=== PATIENT | male | born 1980 | race Caucasian/White ===

== ENCOUNTER 2016-10-27 16:03 | Inpatient (IN) | payer MEDICARE, MEDICAID ==
[~2016-10-27] VITALS: Ht 177.8 cm; Wt 64.5 kg
[2016-10-28 14:44] VITALS: BP 108/67
[2016-10-28] MEDS ORDERED: LORazepam 2 MG/ML VIAL IM ONE (15:15)
[2016-10-28] MEDS ORDERED: DiphenhydrAMINE HCL 50 MG/ML VIAL IM ONE (15:15)
[2016-10-28] MEDS ORDERED: HALOPERIDOL LACTATE 5 MG/ML VIAL IM ONE (15:15)
[2016-10-28] MEDS ORDERED: TUBERCULIN, PURIFIED PROTEIN DERIVATIVE 5 TU/0.1 ML SYG ID ONE (15:45)
[2016-10-28] MEDS ORDERED: PROMETHAZINE HCL 25 MG TABLET PO PRN (15:45)
[2016-10-28] MEDS ORDERED: MAG HYDROX/AL HYDROX/SIMETH ES 30 ML SUSPENSION UDCUP PO PRN (15:45)
[2016-10-28] MEDS ORDERED: ACETAMINOPHEN 325 MG TABLET PO PRN (15:45)
[2016-10-28] MEDS ORDERED: MAGNESIUM HYDROXIDE SUSPENSION 30 ML UDCUP PO PRN (15:45)
[2016-10-28] MEDS ORDERED: ZOLPIDEM TARTRATE 10 MG TABLET PO PRN (15:45)
[2016-10-28] MEDS ORDERED: GuaiFENesin/D-METHORPHAN [SUGAR-FREE] 200-20MG/10 ML SYRUP UDCUP PO PRN (15:45)
[2016-10-28] MEDS ORDERED: HydrOXYzine PAMOATE 50 MG CAPSULE PO PRN (15:45)
[2016-10-28] MEDS ORDERED: OLANZapine 5 MG RAPDIS TABLET PO PRN (15:45)
[2016-10-28] MEDS ORDERED: LORazepam 2 MG TABLET PO PRN (15:45)
[2016-10-28] MEDS ORDERED: INFLUENZA VIRUS VACCINE QVS 2016-17 (3YR+)/PF 60 MCG/0.5 ML SYRINGE IM ONE (15:45)
[2016-10-28] MEDS ORDERED: LOPERAMIDE HCL 2 MG CAPSULE PO PRN (15:45)
[2016-10-28] MEDS: THIAMINE HCL 100 MG TABLET PO SCH (17:00)
[2016-10-28 17:03] VITALS: BP 104/60
[2016-10-28 17:35] VITALS: BP 108/64
[2016-10-28] MEDS ORDERED: HALOPERIDOL LACTATE 5 MG/ML VIAL ONE (18:20)
[2016-10-28] MEDS ORDERED: LORazepam 2 MG/ML VIAL ONE (18:20)
[2016-10-28] MEDS ORDERED: DiphenhydrAMINE HCL 50 MG/ML VIAL ONE (18:20)
[2016-10-28] MEDS: DIVALPROEX SODIUM 500 MG ER TABLET PO SCH (21:00)
[2016-10-28] MEDS: OLANZapine 5 MG RAPDIS TABLET PO SCH (21:25)
[2016-10-29 06:37] VITALS: BP 107/67
[2016-10-29 07:42] LABS: BASOPHILS % (AUTO) 0.4 % (0.0-2.0); EOSINOPHILS % (AUTO) 2.7 % (1.0-6.0); HEMATOCRIT 40.3 % (41-53); LYMPHOCYTES # (AUTO) 2.1 K/uL (1.0-4.8); LYMPHOCYTES % (AUTO) 19.7 % (22.0-44.0); MEAN CORPUSCULAR HEMOGLOBIN 32.5 pg (26.0-34.0); MEAN CORPUSCULAR HGB CONC 32.2 G/dL (31.0-37.0); MEAN CORPUSCULAR VOLUME 101 fL (80-100); MONOCYTES # (AUTO) 0.7 K/uL (0.1-1.0); NEUTROPHILS # (AUTO) 7.4 K/uL (1.8-7.7); NEUTROPHILS % (AUTO) 70.2 % (40.0-70.0); PLATELET COUNT (AUTO) 239 K/uL (150-450); RED CELL DISTRIBUTION WIDTH 14.5 % (11.5-14.5); WHITE BLOOD COUNT (AUTO) 10.6 K/uL (4.5-11.0)
[2016-10-29 08:01] LABS: ALANINE AMINOTRANSFERASE 23 U/L (12-78); ALBUMIN 2.8 g/dL (3.4-5.0); ANION GAP 7 mmol/L (8-16); ASPARTATE AMINOTRANSFERASE 38 U/L (15-37); BILIRUBIN,TOTAL 0.2 mg/dL (0.1-1.0); CALCIUM, TOTAL 8.1 mg/dL (8.8-10.5); CARBON DIOXIDE 28 mmol/L (22-29); CHLORIDE 105 mmol/L (98-107); CHOL/HDL RATIO 2.6 (4.2-7.3); GLOMERULAR FILTR. RATE CALC > 60 mL/min (>60); POTASSIUM 4.4 mmol/L (3.5-5.1); SODIUM SERUM 140 mmol/L (136-145); THYROID STIMULATING HORMONE 1.46 uIU/mL (0.36-3.74); TOTAL PROTEIN, SERUM 5.8 g/dL (6.4-8.2); UREA NITROGEN, BLOOD 9 mg/dL (7-18)
[2016-10-29 08:09] LABS: HEMOGLOBIN A1C 5.7 % (4.5-6.2)
[2016-10-29 08:10] VITALS: BP 106/64
[2016-10-29 08:19] LABS: RBC MORPHOLOGY COMMENT ABNORMAL RBC MORPH
[2016-10-29] MEDS: MULTIVITAMINS WITH MINERALS, THERAPEUTIC TABLET PO SCH (09:37)
[2016-10-29] MEDS: THIAMINE HCL 100 MG TABLET PO SCH ×2 (09:37→16:49)
[2016-10-29] MEDS: FOLIC ACID 1 MG TABLET PO SCH (09:37)
[2016-10-29 16:15] VITALS: BP 112/64
[2016-10-29] MEDS: DIVALPROEX SODIUM 500 MG ER TABLET PO SCH (20:16)
[2016-10-29] MEDS: OLANZapine 5 MG RAPDIS TABLET PO SCH (20:17)
[2016-10-30 08:28] VITALS: BP 105/58
[2016-10-30] MEDS: FOLIC ACID 1 MG TABLET PO SCH (08:53)
[2016-10-30] MEDS: MULTIVITAMINS WITH MINERALS, THERAPEUTIC TABLET PO SCH (08:53)
[2016-10-30] MEDS: THIAMINE HCL 100 MG TABLET PO SCH ×2 (08:53→16:13)
[2016-10-30 16:00] VITALS: BP 109/75
[2016-10-30] MEDS: DIVALPROEX SODIUM 500 MG ER TABLET PO SCH (20:34)
[2016-10-30] MEDS: OLANZapine 5 MG RAPDIS TABLET PO SCH (20:34)
[2016-10-31 06:49] VITALS: BP 116/76
[2016-10-31 08:12] VITALS: BP 112/64
[2016-10-31] MEDS: FOLIC ACID 1 MG TABLET PO SCH (08:27)
[2016-10-31] MEDS: THIAMINE HCL 100 MG TABLET PO SCH ×2 (08:27→16:11)
[2016-10-31] MEDS: MULTIVITAMINS WITH MINERALS, THERAPEUTIC TABLET PO SCH (08:27)
[2016-10-31 16:00] VITALS: BP 135/75
[2016-10-31] MEDS ORDERED: OLAN5Z PO (16:31)
[2016-10-31] MEDS ORDERED: DIVA500T52 PO (16:31)
[2016-10-31] MEDS ORDERED: NALT50 PO (16:32)
[2016-10-31] MEDS ORDERED: OLANZapine 10 MG RAPDIS TABLET PO SCH (21:00)
[2016-11-01] MEDS ORDERED: NALTREXONE HCL 50 MG TABLET PO SCH (09:00)
== END 2016-10-31 18:00 | disposition home or self-care (01) | DRG 885 ==
LOC: B3A 10-28 15:14
PROVIDERS: ADMIT Psychiatry & Neurology Psychiatry; ATTEND Psychiatry & Neurology Psychiatry
PROC: 3E0234Z Introduction of Serum, Toxoid and Vaccine into Muscle, Percutaneous Approach (ICD-10-PCS; principal; 2016-10-28)
DX: F20.0 Paranoid schizophrenia (principal); G40.909 Epilepsy, unspecified, not intractable, without status epilepticus; F17.200 Nicotine dependence, unspecified, uncomplicated; D53.9 Nutritional anemia, unspecified; Z91.19 Patient's noncompliance with other medical treatment and regimen; Z59.0 Homelessness; Z23 Encounter for immunization
CPT/HCPCS: 83036; 84439; 84443; 86592; 87081; 90471; J1200; J1630; J2060